=== PATIENT | female | born 1985 | race Two or more races ===

== ENCOUNTER 2017-01-12 19:51 | Emergency (ER) | payer OTHER ==
[2017-01-12 20:28] LABS: URINE BILIRUBIN NEGATIVE (NEGATIVE); URINE BLOOD NEGATIVE (NEGATIVE); URINE GLUCOSE (UA) NEGATIVE (NEGATIVE); URINE LEUKOCYTE ESTERASE NEGATIVE (NEGATIVE); URINE NITRITE NEGATIVE (NEGATIVE); URINE PROTEIN NEGATIVE (NEGATIVE); URINE UROBILINOGEN NORMAL (0-1 mg/dl)
[2017-01-12 20:29] LABS: HCG,QUALITATIVE URINE NEGATIVE; URINE APPEARANCE CLEAR; URINE COLOR YELLOW
[2017-01-12 20:44] LABS: ABSOLUTE NEUTROPHIL COUNT 4.3 K/mm3 (1.8-7.7); BASO % 0.5 % (0.2-1.0); EOS # 0.3 (0.0-0.5); EOS % 3.3 % (0.9-2.9); IMM NEUT% 0.3 % (0-1); LYMPH # 2.4 (1.0-4.8); LYMPH % 31.5 % (15-45); MEAN CELL VOLUME 88.3 fl (81.0-99.0); MEAN CORPUSCULAR HEMOGLOBIN 28.7 pg (27.0-31.0); MEAN CORPUSCULAR HGB CONC 32.6 g/dl (33.0-37.0); MEAN PLATELET VOLUME 9.9 fl (7.4-10.4); MONO # 0.5 (0.0-0.8); MONO % 7.1 % (4-12); NEUT % 57.3 % (43-75); PLATELET COUNT 318 K/mm3 (130-400); RED CELL DISTRIBUTION WIDTH 13.2 % (11.5-14.5)
[2017-01-12 20:49] LABS: ALB/GLOB RATIO 1.5 (>1.0); ALBUMIN 4.3 gm/dL (3.5-5.7); CALCIUM 9.3 mg/dL (8.6-10.3)
--- NOTE | 2017-01-13 08:09 | US ---
ABDOMINAL-LIMITED COMPARISON: Gallbladder ultrasound, 05/02/2015 HISTORY: Right upper quadrant pain. FINDINGS: Gall bladder: Contracted, 4.0 cm length. No stones or sludge. Negative Meadows sign. Common hepatic duct: 1.9). Common bile duct: 3.4 mm. IMPRESSION: 1. Normal study. Contracted gallbladder. No stones. Preliminary report by [facility] radiologist Ludin Edmondson M.D. 01/13/2017 at 00:32
== END 2017-01-13 00:55 | disposition home or self-care (01) ==
LOC: ED 19:51
DX: R10.9 Unspecified abdominal pain (principal); R11.2 Nausea with vomiting, unspecified; J45.909 Unspecified asthma, uncomplicated